=== PATIENT | female | born 1975 | race Caucasian/White ===

== ENCOUNTER → 2018-03-27 | Outpatient (REF) | LOC: ZLAB.WCH 17:13 | DX: Z01.89 Encounter for other specified special examinations (principal) ==

== ENCOUNTER → 2019-05-24 | Outpatient (CLI) | payer BC ==
[~2019-05-24] VITALS: Ht 154.9 cm; Wt 83.9 kg
[~2019-05-24] MED LIST: SYNTHROID0.1 MG/TAB PO
[2019-05-24 09:18] VITALS: BP 135/91; PULSE 78
[2019-05-24 10:07] VITALS: BP 123/88; PULSE 79
== END ==
LOC: COL.RAD 09:00
DX: E04.1 Nontoxic single thyroid nodule (principal)